=== PATIENT | female | born 1995 | race Caucasian/White ===

== ENCOUNTER 2017-08-31 13:51 | Emergency (ER) | payer OTHER ==
[~2017-08-31] VITALS: Ht 157.5 cm; Wt 82.1 kg
[2017-08-31 13:57] VITALS: Ht 157.5 cm; Wt 82.1 kg
[2017-08-31 14:05] VITALS: BP 118/60
== END 2017-08-31 14:32 | disposition home or self-care (01) ==
LOC: ED 13:51
DX: H60.502 Unspecified acute noninfective otitis externa, left ear (principal); Z88.0 Allergy status to penicillin